=== PATIENT | male | born 1980 | race Caucasian/White ===

== ENCOUNTER 2018-09-09 13:45 | Emergency (ER) | payer BC ==
[2018-09-09 14:42] VITALS: BP 148/89
--- NOTE | 2018-09-09 14:51 | UC ---
Back Pain HPI - HPI Summary HPI Summary: 3 days of pain in the right buttock with radiation to the right foreleg, particularly the calf, which feels tight and sore. Has mild numbness in the right toes 3, 4,5. Pain is primarily with weight bearing. Precipitating injury was leaning over an incubator feeding his infant daughter every 2 hours over the past weekend. Yesterday he walked a lot and did a lot of stairs. was hospitalized for 6 days for induction of labor, but he describes no period of immobility--was often up and walking. - History of Current Complaint Chief Complaint: UCLowerExtremity Stated Complaint: RT LEG/HIP COMPLAINT Time Seen by Provider: 09/09/18 14:45 Hx Obtained From: Patient Onset/Duration: Gradual Onset, Lasting Days - 3 Timing: Constant Severity Initially: Mild Severity Currently: Moderate Pain Intensity: 0 Character: Aching, Spasmodic, Stiffness Aggravating Factor(s): Walking Alleviating Factor(s): Position - comfortable seated and lying, pain resolves with rest. Associated Signs And Symptoms: Positive: Swelling - has tightness in the right calf. - Risk Factors AAA Risk Factors: Negative TAD Risk Factors: Negative Cauda Equina Risk Factors: Negative Epidural Abscess Risk Factors: Negative - Allergies/Home Medications Allergies/Adverse Reactions: Allergies Allergy/AdvReac Type Severity Reaction Status Date / Time No Known Allergies Allergy Verified 09/05/16 19:28 PMH/Surg Hx/FS Hx/Imm Hx Previously Healthy: Yes - obese - Surgical History Surgical History: None - Family History Known Family History: Positive: None - no FH of clotting disorders., Diabetes - mother - Social History Occupation: Employed Full-time Lives: With Family Alcohol Use: Rare Substance Use Type: None Smoking Status (MU): Former Smoker When Did the Patient Quit Smoking/Using Tobacco: 2007 Review of Systems All Other Systems Reviewed And Are Negative: Yes Constitutional: Positive: Negative Skin: Positive: Negative Eyes: Positive: Negative ENT: Positive: Negative Respiratory: Positive: Negative Cardiovascular: Positive: Negative Gastrointestinal: Positive: Negative Genitourinary: Positive: Negative Motor: Positive: Negative Neurovascular: Positive: Negative Musculoskeletal: Positive: Calf Tenderness, Myalgia Neurological: Positive: Negative Psychological: Positive: Negative Is Patient Immunocompromised?: No Physical Exam Triage Information Reviewed: Yes Appearance: Well-Appearing, Pain Distress - mild, Obese Vital Signs: Initial Vital Signs Temp 97.9 F 09/09/18 14:40 Pulse 89 09/09/18 14:40 Resp 16 09/09/18 14:40 BP 148/89 09/09/18 14:40 Pulse Ox 97 09/09/18 14:40 Eye Exam: Normal ENT: Positive: Pharynx normal Respiratory: Positive: Lungs clear, Normal breath sounds Cardiovascular: Positive: RRR, No Murmur Musculoskeletal Exam: Other - mildly antalgic gait, no limp. Full rom lumbar spine. SLR markedly limited by hamstring tightness, bilaterally restricted to 85 degrees. Full rom in the hips. Musculoskeletal: Positive: Strength Intact, No Edema - right calf is mildly enlarged compared to the left by about 1 cm in the mid calf and at the ankle. El's is negative. No warmth or erythema. Neurological: Positive: Alert, Muscle Tone Normal, Fatigued Psychological Exam: Normal Skin Exam: Normal Back Pain Course/Dx - Course Course Of Treatment: sciatic pain to be addressed by analgesics, muscle relaxants. If calf pain increases, advised ER assessemnt to rule out DVT - Differential Dx/Diagnosis Differential Diagnosis/HQI/PQRI: Compressive Cord Syndrome, Herniated Disc, Sprain, Other - sciatica Provider Diagnosis: Sciatica of right side Discharge - Sign-Out/Discharge Documenting (check all that apply): Patient Departure All imaging exams completed and their final reports reviewed: No Studies - Discharge Plan Condition: Stable Disposition: HOME Prescriptions: Cyclobenzaprine TAB* [Flexeril 10 MG TAB*] 10 mg PO BID PRN #20 tab PRN Reason: Spasms - Muscle Patient Education Materials: Sciatica (ED) Referrals: Brianna Beasley NP [Primary Care Provider] - Additional Instructions: As discussed, you will increase ibuprofen to 800mg every 8 hours for pain control, continue stretching, and use a muscle relaxant. This is sedating, ensure cauttion with driving or doing infant care. If you have increasing calf pain or swelling, please go the emergency room to have the testing done to rule out blood clot. Overall, I believe that you have sciatic pain, but be aware of the calf pain as possibly having a different origin. - Billing Disposition and Condition Condition: STABLE Disposition: Home
[2018-09-09] MEDS ORDERED: Ibuprofen TAB* 400 MG PO ONE (15:08)
== END 2018-09-09 15:53 | disposition home or self-care (01) ==
LOC: UCCORT 13:45
DX: M54.31 Sciatica, right side (principal); Z87.891 Personal history of nicotine dependence
CPT/HCPCS: 99212; A9270-GY; G0463